=== PATIENT | male | born 2005 | race Caucasian/White ===

== ENCOUNTER 2025-08-03 17:11 | Emergency (ER) | payer MEDICAID ==
[~2025-08-03] VITALS: Ht 167.6 cm; Wt 68.4 kg
[2025-08-03] MEDS ORDERED: 0.9% SODIUM CHLORIDE 10 ML SYRINGE IVP ONE (18:52)
[2025-08-03] MEDS ORDERED: IOHEXOL 350 MG/ML 100 ML VIAL ONE (18:53)
[2025-08-03] MEDS ORDERED: SODIUM CHLORIDE 0.9% 100 ML ONE (18:53)
[2025-08-03] MEDS ORDERED: IBUP-1492 PO (22:12)
[2025-08-03 22:28] VITALS: BP 128/66; PULSE 76; RESP 20; TEMP 97.3; O2SAT 98
== END 2025-08-04 01:11 | disposition home or self-care (01) ==
LOC: EMS 17:11
DX: S30.811A Abrasion of abdominal wall, initial encounter (principal); M25.571 Pain in right ankle and joints of right foot; V89.2XXA Person injured in unspecified motor-vehicle accident, traffic, initial encounter; Y93.89 Activity, other specified; Y92.410 Unspecified street and highway as the place of occurrence of the external cause; Y99.8 Other external cause status
CPT/HCPCS: 99285; 74177; 73590; 73610; 73630; Q9967; J7050